=== PATIENT | male | born 1960 | race Caucasian/White ===

== ENCOUNTER 2021-05-02 15:43 | Inpatient (IN) ==
[2021-05-02] MEDS ORDERED: ONDANSETRON 4 MG/2 ML VIAL IV PRN (15:59)
[2021-05-02 17:12] LABS: Hematocrit 48.3 VOL% (42.0-52.0); Hemoglobin 15.1 GM/DL (14.0-18.0); Immature Granulocytes % 0.5 %; Immature Granulocytes Absolute 0.03 #; Lymphocytes # 0.3 10*3/uL (1.4-4.0); Lymphocytes % 4.9 % (21.2-54.2); Mean Corpuscular HGB Conc 31.3 GM/DL (32-36); Mean Corpuscular Volume 82.1 FL (87-102); Mean Platelet Volume 9.2 FL (9.6-12.0); Monocytes % 4.5 % (1.7-12.7); Neutrophils % 90.1 % (38.7-73.9); Platelet Count 312 T/CUMM (130-400); Red Blood Count 5.88 MC/CUMM (3.8-5.5); White Blood Count 5.6 T/CUMM (4-12)
[2021-05-02 17:33] LABS: Albumin 3.1 G/DL (3.4-5.0); Bilirubin,Total 0.6 MG/DL (0.20-1.00); Calcium 9.7 MG/DL (8.5-10.1); Osmolality,Calculated 266.7 MOS/KG (273-304); Potassium 4.1 MMOL/L (3.5-5.1); Total Protein 7.4 G/DL (6.4-8.2)
[2021-05-02 21:47] LABS: Band Neutrophils 1 % (0-10); Lymphocytes 4 % (20-55); Platelet Estimate Normal; Segmented Neutrophils 92 % (50-85); Total Cells Counted 100
[2021-05-02] MEDS ORDERED: ONDANSETRON 4 MG TABLET PO PRN (23:13)
[2021-05-03] MEDS ORDERED: APIXABAN 5 MG TABLET PO SCH (09:00)
[2021-05-03] MEDS: MELOXICAM 7.5 MG TABLET PO SCH (10:00)
[2021-05-03] MEDS: PANTOPRAZOLE 40 MG TABLET PO SCH (10:00)
[2021-05-03] MEDS: amLODIPine 10 MG TABLET PO SCH (10:00)
[2021-05-03] MEDS: SODIUM CHLORIDE 0.9% 1,000 ML IV SCH (16:11)
[2021-05-03] MEDS: ENOXAPARIN 60 MG/0.6 ML SYRINGE SUBCUT SCH (16:21)
[2021-05-04] MEDS: ACETAMINOPHEN 325 MG TABLET PO PRN (03:09)
[2021-05-04] MEDS: ENOXAPARIN 60 MG/0.6 ML SYRINGE SUBCUT SCH ×2 (03:11→16:25)
[2021-05-04] MEDS ORDERED: DILTIAZEM 50 MG/10 ML VIAL IV ONE (04:08)
[2021-05-04] MEDS ORDERED: DILTIAZEM 25 MG/5 ML VIAL IV ONE (04:10)
[2021-05-04] MEDS: SODIUM CHLORIDE 0.9% 1,000 ML IV SCH ×3 (04:29→21:12)
[2021-05-04] MEDS ORDERED: METOPROLOL TARTRATE 5 MG/5 ML VIAL IV ONE (05:07)
[2021-05-04 06:08] LABS: Basophils % 0.2 % (0.0-0.8); Hematocrit 46.7 VOL% (42.0-52.0); Hemoglobin 14.8 GM/DL (14.0-18.0); Immature Granulocytes % 0.5 %; Immature Granulocytes Absolute 0.03 #; Lymphocytes # 0.4 10*3/uL (1.4-4.0); Lymphocytes % 7.2 % (21.2-54.2); Mean Corpuscular HGB Conc 31.7 GM/DL (32-36); Mean Corpuscular Volume 81.6 FL (87-102); Monocytes % 5.8 % (1.7-12.7); Neutrophils % 86.3 % (38.7-73.9); Platelet Count 279 T/CUMM (130-400); Red Blood Count 5.72 MC/CUMM (3.8-5.5); Red Cell Distribution Width 19.8 % (9.3-17.3); White Blood Count 5.7 T/CUMM (4-12)
[2021-05-04] MEDS: DILTIAZEM INJ 100 MG in SODIUM CHLORIDE 0.9% 100 ML IV SCH ×3 (06:09→23:11)
[2021-05-04 06:27] LABS: Calcium 9.3 MG/DL (8.5-10.1); Osmolality,Calculated 266.4 MOS/KG (273-304); Potassium 3.8 MMOL/L (3.5-5.1)
[2021-05-04 06:59] LABS: Band Neutrophils 2 % (0-10); Hypochromasia 2+; Lymphocytes 2 % (20-55); Platelet Estimate Normal; Segmented Neutrophils 95 % (50-85); Total Cells Counted 100
[2021-05-04] MEDS: amLODIPine 10 MG TABLET PO SCH (09:36)
[2021-05-04] MEDS: MELOXICAM 7.5 MG TABLET PO SCH (09:36)
[2021-05-04] MEDS: PANTOPRAZOLE 40 MG TABLET PO SCH (09:36)
[2021-05-04] MEDS: METOPROLOL TARTRATE 25 MG TABLET PO SCH ×2 (11:25→21:12)
[2021-05-05] MEDS: ENOXAPARIN 60 MG/0.6 ML SYRINGE SUBCUT SCH ×2 (03:47→16:26)
[2021-05-05] MEDS: SODIUM CHLORIDE 0.9% 1,000 ML IV SCH ×2 (05:31→18:21)
[2021-05-05] MEDS ORDERED: DILTIAZEM INJ 100 MG in SODIUM CHLORIDE 0.9% 100 ML IV PRN (08:41)
[2021-05-05] MEDS: amLODIPine 10 MG TABLET PO SCH (10:24)
[2021-05-05] MEDS: MELOXICAM 7.5 MG TABLET PO SCH (10:24)
[2021-05-05] MEDS: METOPROLOL TARTRATE 25 MG TABLET PO SCH ×2 (10:25→21:53)
[2021-05-05] MEDS: PANTOPRAZOLE 40 MG TABLET PO SCH (10:25)
[2021-05-05] MEDS ORDERED: MAGNESIUM SULF RIDER 2 GM/50 ML PREMIX IV ONE (11:00)
[2021-05-05] MEDS ORDERED: POTASSIUM CHLORIDE 20 MEQ TABLET PO ONE (11:00)
[2021-05-05] MEDS ORDERED: POTASSIUM BICARB EFFERVESCENT 20 MEQ TAB.EFF PO ONE (11:30)
[2021-05-06] MEDS: ENOXAPARIN 60 MG/0.6 ML SYRINGE SUBCUT SCH (03:42)
[2021-05-06 06:06] LABS: Basophils % 0.3 % (0.0-0.8); Eosinophils % 0.3 % (0.00-10.9); Hematocrit 47.4 VOL% (42.0-52.0); Hemoglobin 14.5 GM/DL (14.0-18.0); Immature Granulocytes % 0.5 %; Immature Granulocytes Absolute 0.02 #; Lymphocytes # 0.4 10*3/uL (1.4-4.0); Mean Corpuscular HGB Conc 30.6 GM/DL (32-36); Mean Corpuscular Volume 83.7 FL (87-102); Mean Platelet Volume 9.8 FL (9.6-12.0); Monocytes % 5.2 % (1.7-12.7); Neutrophils % 84.7 % (38.7-73.9); Platelet Count 260 T/CUMM (130-400); Red Blood Count 5.66 MC/CUMM (3.8-5.5); Red Cell Distribution Width 19.8 % (9.3-17.3); White Blood Count 3.9 T/CUMM (4-12)
[2021-05-06 06:22] LABS: Calcium 8.5 MG/DL (8.5-10.1); Osmolality,Calculated 280.3 MOS/KG (273-304); Potassium 3.7 MMOL/L (3.5-5.1)
[2021-05-06 06:28] LABS: Eosinophils 1 % (0-10); Lymphocytes 12 % (20-55); Platelet Estimate Adequate; Segmented Neutrophils 86 % (50-85); Total Cells Counted 100
[2021-05-06] MEDS ORDERED: STERILE WATER INTRAPLEUR ONE ×2 (08:00)
[2021-05-06] MEDS ORDERED: LIDOCAINE 1% INTRAPLEUR ONE ×2 (08:00)
[2021-05-06] MEDS ORDERED: SODIUM CHLORIDE 0.9% IV ONE (08:00)
[2021-05-06] MEDS ORDERED: DOXYCYCLINE HYCLATE IV ONE (08:00)
[2021-05-06] MEDS ORDERED: DOXYCYCLINE HYCLATE INTRAPLEUR ONE ×2 (08:00)
[2021-05-06] MEDS ORDERED: BUPIVACAINE MPF 0.25% 30 ML VIAL ONE (10:21)
[2021-05-06] MEDS ORDERED: fentaNYL 100 MCG/2 ML VIAL ONE (10:23)
[2021-05-06] MEDS ORDERED: MIDAZOLAM 2 MG/2 ML VIAL ONE (10:26)
[2021-05-06] MEDS ORDERED: KETAMINE 500 MG/10 ML VIAL ONE (10:49)
[2021-05-06] MEDS ORDERED: propofoL 200 MG/20 ML VIAL IV ONE (11:07)
[2021-05-06] MEDS ORDERED: ETOMIDATE 40 MG/20 ML VIAL IV ONE (11:07)
[2021-05-06] MEDS ORDERED: LIDOCAINE 2% 5 ML VIAL ONE (11:07)
[2021-05-06] MEDS ORDERED: ONDANSETRON 4 MG/2 ML VIAL ONE (11:38)
[2021-05-06] MEDS ORDERED: SODIUM CHLORIDE 0.9% 100 ML IV ONE (11:38)
[2021-05-06] MEDS: PANTOPRAZOLE 40 MG TABLET PO SCH (13:09)
[2021-05-06] MEDS: DILTIAZEM CD 120 MG CAPSULE PO SCH (13:09)
[2021-05-06] MEDS: METOPROLOL TARTRATE 25 MG TABLET PO SCH ×2 (13:09→20:01)
[2021-05-06] MEDS: MELOXICAM 7.5 MG TABLET PO SCH (13:09)
[2021-05-06] MEDS: SODIUM CHLORIDE 0.9% 1,000 ML IV SCH (14:32)
[2021-05-06] MEDS: FLUCONAZOLE INJ 200 MG/100 ML PREMIX IV SCH (14:50)
[2021-05-07] MEDS: SODIUM CHLORIDE 0.9% 1,000 ML IV SCH ×4 (04:56→23:58)
[2021-05-07 05:33] LABS: PT Patient Result 11.4 SECS (10.5-12.0)
[2021-05-07 05:41] LABS: Basophils % 0.7 % (0.0-0.8); Eosinophils # 0.1 10*3/uL (0.0-0.87); Eosinophils % 2.5 % (0.00-10.9); Hematocrit 45.5 VOL% (42.0-52.0); Hemoglobin 14.4 GM/DL (14.0-18.0); Immature Granulocytes % 0.7 %; Immature Granulocytes Absolute 0.03 #; Lymphocytes # 0.3 10*3/uL (1.4-4.0); Lymphocytes % 6.7 % (21.2-54.2); Mean Corpuscular HGB Conc 31.6 GM/DL (32-36); Mean Corpuscular Volume 83.8 FL (87-102); Mean Platelet Volume 9.9 FL (9.6-12.0); Monocytes % 5.7 % (1.7-12.7); Neutrophils % 83.7 % (38.7-73.9); Platelet Count 211 T/CUMM (130-400); Red Blood Count 5.43 MC/CUMM (3.8-5.5); Red Cell Distribution Width 19.8 % (9.3-17.3); White Blood Count 4.1 T/CUMM (4-12)
[2021-05-07 05:55] LABS: Albumin 2.3 G/DL (3.4-5.0); Calcium 8.6 MG/DL (8.5-10.1); Potassium 3.4 MMOL/L (3.5-5.1); Total Protein 5.8 G/DL (6.4-8.2)
[2021-05-07 05:56] LABS: Eosinophils 1 % (0-10); Hypochromasia 1+; Lymphocytes 7 % (20-55); Microcytosis 1+; Ovalocytes Few; Segmented Neutrophils 88 % (50-85); Total Cells Counted 100
[2021-05-07 05:57] LABS: Platelet Estimate Normal
[2021-05-07 06:09] LABS: Calcium 8.3 MG/DL (8.5-10.1); Potassium 3.5 MMOL/L (3.5-5.1)
[2021-05-07] MEDS ORDERED: VANCOMYCIN INJ 1,000 MG in SODIUM CHLORIDE 0.9% 250 ML IV ONE (08:00)
[2021-05-07] MEDS ORDERED: LACTATED RINGERS 1,000 ML IV SCH ×2 (08:00→12:00)
[2021-05-07] MEDS: FLUCONAZOLE INJ 200 MG/100 ML PREMIX IV SCH (10:42)
[2021-05-07] MEDS: METOPROLOL TARTRATE 25 MG TABLET PO SCH ×2 (10:43→21:33)
[2021-05-07] MEDS: MELOXICAM 7.5 MG TABLET PO SCH (10:43)
[2021-05-07] MEDS: DILTIAZEM CD 120 MG CAPSULE PO SCH (10:43)
[2021-05-07] MEDS: PANTOPRAZOLE 40 MG TABLET PO SCH (10:44)
[2021-05-07] MEDS ORDERED: BUPIVACAINE MPF 0.25% 30 ML VIAL ONE (10:51)
[2021-05-07] MEDS ORDERED: TISSUE ADHESIVE 1 EACH APPLICATOR TOP ONE (10:51)
[2021-05-07] MEDS ORDERED: LIDOCAINE 1%/EPI INJ 20 ML VIAL ONE (10:51)
[2021-05-07] MEDS ORDERED: CLINDAMYCIN INJ 900 MG/50 ML PREMIX IV ONE (12:13)
[2021-05-07] MEDS ORDERED: NALOXONE 0.4 MG/ML VIAL ONE (18:50)
[2021-05-07] MEDS ORDERED: NALOXONE 0.4 MG/ML VIAL IV ONE (18:50)
[2021-05-07 19:15] LABS: Basophils # 0.1 10*3/uL (0.0-0.2); Basophils % 0.8 % (0.0-0.8); Eosinophils % 0.3 % (0.00-10.9); Hematocrit 49.4 VOL% (42.0-52.0); Immature Granulocytes % 0.8 %; Immature Granulocytes Absolute 0.08 #; Lymphocytes # 0.5 10*3/uL (1.4-4.0); Lymphocytes % 5.4 % (21.2-54.2); Mean Corpuscular HGB Conc 28.3 GM/DL (32-36); Mean Corpuscular Volume 90.1 FL (87-102); Mean Platelet Volume 9.9 FL (9.6-12.0); NRBC # 0.05 10*3/uL; Neutrophils % 87.7 % (38.7-73.9); Platelet Count 236 T/CUMM (130-400); Red Blood Count 5.48 MC/CUMM (3.8-5.5); Red Cell Distribution Width 19.8 % (9.3-17.3); White Blood Count 9.8 T/CUMM (4-12)
[2021-05-07] MEDS ORDERED: ETOMIDATE 20 MG/10 ML VIAL IV ONE (19:18)
[2021-05-07] MEDS ORDERED: MIDAZOLAM 2 MG/2 ML VIAL IV ONE (19:29)
[2021-05-07] MEDS ORDERED: MIDAZOLAM 2 MG/2 ML VIAL ONE (19:31)
[2021-05-07 19:39] LABS: Alanine Aminotransferase 52 U/L (16-61); Albumin 2.1 G/DL (3.4-5.0); Alkaline Phosphatase 162 U/L (45-117); Aspartate Amino Transferase 63 U/L (0-37); Blood Urea Nitrogen 16 MG/DL (7-18); Calcium 8.7 MG/DL (8.5-10.1); Carbon Dioxide 29 MMOL/L (21-32); Estimated Glom Filtration Rate 84 ML/MIN; Glucose 97 MG/DL (74-106); Osmolality,Calculated 283.1 MOS/KG (273-304); Potassium 4.3 MMOL/L (3.5-5.1); Sodium 142 MMOL/L (136-145)
[2021-05-07 19:41] LABS: Lactic Acid 2.3 MMOL/L (0.4-2.0)
[2021-05-07] MEDS ORDERED: NOREPINEPHRINE 4 MG/4 ML VIAL IV ONE (19:53)
[2021-05-07] MEDS: NOREPINEPHRINE 8 MG in SODIUM CHLORIDE 0.9% 242 ML IV PRN (19:58)
[2021-05-07 20:16] LABS: ABG HCO3 9.5 MMOL/L (20-26); ABG Oxygen Saturation 82.4 % (95-100); ABG PCO2 31.2 MM HG (35-48); ABG PO2 54.1 MM HG (80-95); ABG TCO2 9.5 MMOL/L (23-27)
[2021-05-07] MEDS: MIDAZOLAM 100 MG in SODIUM CHLORIDE 0.9% 80 ML IV PRN (20:18)
[2021-05-07 20:27] LABS: ABG PH 7.082 (7.35-7.45)
[2021-05-07] MEDS ORDERED: SODIUM BICARBONATE 50 MEQ/50 ML SYRINGE IV ONE ×2 (20:36)
[2021-05-07] MEDS ORDERED: SODIUM BICARBONATE 50 MEQ/50 ML VIAL IV ONE (21:06)
[2021-05-07] MEDS ORDERED: SODIUM CHLORIDE 0.9% 500 ML IV ONE (21:06)
[2021-05-07 22:03] LABS: INR 1.1; PT Patient Result 11.9 SECS (10.5-12.0)
[2021-05-07 22:18] LABS: Band Neutrophils 19 % (0-10); Eosinophils 1 % (0-10); Lymphocytes 5 % (20-55); Platelet Estimate Normal; Segmented Neutrophils 67 % (50-85); Total Cells Counted 100
[2021-05-08] MEDS: ACETAMINOPHEN 325 MG TABLET PO PRN (00:30)
[2021-05-08] MEDS: NOREPINEPHRINE 8 MG in SODIUM CHLORIDE 0.9% 242 ML IV PRN ×3 (03:01→20:46)
[2021-05-08 03:50] LABS: ABG Base Excess 3.3 MMOL/L (-2.5-2.5); ABG HCO3 26.5 MMOL/L (20-26); ABG Oxygen Saturation 99.4 % (95-100); ABG PCO2 35.9 MM HG (35-48); ABG PH 7.486 (7.35-7.45); ABG PO2 275.1 MM HG (80-95); ABG TCO2 27.6 MMOL/L (23-27)
[2021-05-08 04:08] LABS: Basophils # 0.1 10*3/uL (0.0-0.2); Basophils % 0.9 % (0.0-0.8); Hematocrit 43.1 VOL% (42.0-52.0); Hemoglobin 13.2 GM/DL (14.0-18.0); Immature Granulocytes % 1.2 %; Immature Granulocytes Absolute 0.13 #; Lymphocytes # 0.5 10*3/uL (1.4-4.0); Lymphocytes % 4.3 % (21.2-54.2); Mean Corpuscular HGB Conc 30.6 GM/DL (32-36); Mean Platelet Volume 9.7 FL (9.6-12.0); Monocytes % 6.3 % (1.7-12.7); Neutrophils % 87.3 % (38.7-73.9); Platelet Count 189 T/CUMM (130-400); Red Blood Count 5.19 MC/CUMM (3.8-5.5); Red Cell Distribution Width 19.4 % (9.3-17.3); White Blood Count 10.5 T/CUMM (4-12)
[2021-05-08 04:11] LABS: Bacteria,Urine Occasional /HPF (Few); Bilirubin,Urine Negative (Negative); Blood, Urine Negative (Negative); Glucose,Urine (UA) Negative (Negative); Hyaline Casts,Urine 3 /LPF (0-3); Ketones,Urine 5 mg/dL (Negative); Mucus,Urine Few /LPF (Occasional); Nitrite,Urine Negative (Negative); Protein,Urine 30 MG/DL; RBC,Urine 7 /HPF (0-4); Squamous Epithelial Cell,Urine Occasional /HPF (0-10); Urine Appearance CLOUDY (Clear); Urine Color Amber (Yellow); Urine Specific Gravity 1.011 (1.001-1.035)
[2021-05-08 04:36] LABS: Band Neutrophils 6 % (0-10); Lymphocytes 4 % (20-55); Platelet Estimate Adequate; Segmented Neutrophils 84 % (50-85); Total Cells Counted 100
[2021-05-08 04:37] LABS: Microcytosis Slight
[2021-05-08 04:41] LABS: Albumin 2.1 G/DL (3.4-5.0); Bilirubin,Total 0.6 MG/DL (0.20-1.00); Calcium 8.5 MG/DL (8.5-10.1); Osmolality,Calculated 293.6 MOS/KG (273-304); Potassium 3.4 MMOL/L (3.5-5.1); Total Protein 5.5 G/DL (6.4-8.2)
[2021-05-08] MEDS: fentaNYL INJ 1,250 MCG in SODIUM CHLORIDE 0.9% 225 ML IV PRN ×2 (05:02→20:33)
[2021-05-08] MEDS: METOPROLOL TARTRATE 25 MG TABLET PO SCH ×2 (08:30→21:04)
[2021-05-08] MEDS ORDERED: LACTULOSE 20 GM/30 ML UDCUP PER TUBE SCH (09:00)
[2021-05-08] MEDS: HYDROCORTISONE 100 MG VIAL IV SCH ×3 (09:09→21:03)
[2021-05-08] MEDS: MELOXICAM 7.5 MG TABLET PO SCH (09:09)
[2021-05-08] MEDS: PANTOPRAZOLE 40 MG VIAL IV SCH (09:09)
[2021-05-08] MEDS: FLUCONAZOLE INJ 200 MG/100 ML PREMIX IV SCH (09:29)
[2021-05-08] MEDS: POTASSIUM CHLORIDE RIDER 10 MEQ/100 ML PREMIX IV PRN ×3 (12:02→16:08)
[2021-05-08] MEDS: CLINDAMYCIN INJ 300 MG/50 ML PREMIX IV SCH ×3 (12:41→21:03)
[2021-05-08] MEDS: LACTULOSE 320 GM/480 ML BOTTLE RECTAL SCH (12:41)
[2021-05-08] MEDS: SODIUM CHLORIDE 0.9% 1,000 ML IV SCH (12:41)
[2021-05-08] MEDS: MIDAZOLAM 100 MG in SODIUM CHLORIDE 0.9% 80 ML IV PRN (14:17)
[2021-05-08] MEDS: FAT EMULSION 20% 250 ML IV SCH (15:53)
[2021-05-08] MEDS ORDERED: ZINC/COPPER/MANGANESE/SELENIUM 1 ML, MULTIVITAMIN INJ 10 ML in AMINO ACIDS/DEXT/LYTES 5... IV SCH (17:00)
[2021-05-09] MEDS: LACTULOSE 320 GM/480 ML BOTTLE RECTAL SCH (00:40)
[2021-05-09] MEDS: HYDROCORTISONE 100 MG VIAL IV SCH ×3 (03:00→20:46)
[2021-05-09] MEDS: SODIUM CHLORIDE 0.9% 1,000 ML IV SCH ×2 (03:00→18:04)
[2021-05-09] MEDS: CLINDAMYCIN INJ 300 MG/50 ML PREMIX IV SCH ×4 (03:56→20:46)
[2021-05-09 04:49] LABS: ABG Base Excess 4.5 MMOL/L (-2.5-2.5); ABG HCO3 29.9 MMOL/L (20-26); ABG Oxygen Saturation 98.7 % (95-100); ABG PCO2 47.8 MM HG (35-48); ABG PH 7.414 (7.35-7.45); ABG PO2 166.6 MM HG (80-95); ABG TCO2 31.4 MMOL/L (23-27)
[2021-05-09 05:00] LABS: Basophils % 0.2 % (0.0-0.8); Hematocrit 36.7 VOL% (42.0-52.0); Hemoglobin 11.6 GM/DL (14.0-18.0); Immature Granulocytes % 1.2 %; Immature Granulocytes Absolute 0.12 #; Lymphocytes # 0.3 10*3/uL (1.4-4.0); Lymphocytes % 3.1 % (21.2-54.2); Mean Corpuscular HGB Conc 31.6 GM/DL (32-36); Mean Corpuscular Volume 81.6 FL (87-102); Mean Platelet Volume 10.1 FL (9.6-12.0); Monocytes % 6.7 % (1.7-12.7); Neutrophils % 88.8 % (38.7-73.9); Red Cell Distribution Width 19.5 % (9.3-17.3)
[2021-05-09 05:01] LABS: Platelet Count 139 T/CUMM (130-400)
[2021-05-09 05:02] LABS: Calcium 8.1 MG/DL (8.5-10.1); Osmolality,Calculated 311.6 MOS/KG (273-304); Potassium 3.6 MMOL/L (3.5-5.1)
[2021-05-09 05:07] LABS: Band Neutrophils 4 % (0-10); Hypochromasia 1+; Lymphocytes 5 % (20-55); Nucleated Red Blood Cells 1 (0-5); Segmented Neutrophils 80 % (50-85); Total Cells Counted 100
[2021-05-09 05:08] LABS: Anisocytosis 1+; Microcytosis 1+; Platelet Estimate Adequate
[2021-05-09 05:18] LABS: Albumin 1.9 G/DL (3.4-5.0); Bilirubin,Total 0.6 MG/DL (0.20-1.00); Calcium 8.4 MG/DL (8.5-10.1); Osmolality,Calculated 308.7 MOS/KG (273-304); Potassium 3.5 MMOL/L (3.5-5.1); Total Protein 5.2 G/DL (6.4-8.2)
[2021-05-09] MEDS: PANTOPRAZOLE 40 MG VIAL IV SCH (09:00)
[2021-05-09] MEDS: FLUCONAZOLE INJ 200 MG/100 ML PREMIX IV SCH (09:01)
[2021-05-09] MEDS: MELOXICAM 7.5 MG TABLET PO SCH (09:10)
[2021-05-09] MEDS: METOPROLOL TARTRATE 25 MG TABLET PO SCH ×2 (09:10→21:01)
[2021-05-09] MEDS: MIDAZOLAM 100 MG in SODIUM CHLORIDE 0.9% 80 ML IV PRN (09:26)
[2021-05-09] MEDS ORDERED: GLUCAGON 1 MG VIAL IM PRN (10:59)
[2021-05-09] MEDS ORDERED: DEXTROSE 50% 25 GM/50 ML VIAL IV PRN (10:59)
[2021-05-09] MEDS: NOREPINEPHRINE 8 MG in SODIUM CHLORIDE 0.9% 242 ML IV PRN (11:52)
[2021-05-09] MEDS: INSULIN REGULAR 100 UNIT/ML SUBCUT SCH ×3 (12:26→23:26)
[2021-05-09] MEDS: FAT EMULSION 20% 250 ML IV SCH (14:18)
[2021-05-09] MEDS ORDERED: DIGOXIN 0.5 MG/2 ML AMP IV ONE ×2 (14:33→15:15)
[2021-05-09] MEDS ORDERED: ZINC/COPPER/MANGANESE/SELENIUM 1 ML, MULTIVITAMIN INJ 10 ML in AMINO ACIDS/DEXT/LYTES 5... IV SCH (17:00)
[2021-05-09] MEDS: SELENIUM IV SCH (18:13)
[2021-05-09] MEDS: COPPER IV SCH (18:13)
[2021-05-09] MEDS: MANGANESE IV SCH (18:13)
[2021-05-09] MEDS: MULTIVITAMIN IV SCH (18:13)
[2021-05-09] MEDS: [UNRECOGNIZED DRUG - OTHER] IV SCH (18:13)
[2021-05-09] MEDS: ZINC IV SCH (18:13)
[2021-05-09] MEDS: fentaNYL INJ 1,250 MCG in SODIUM CHLORIDE 0.9% 225 ML IV PRN (23:26)
[2021-05-10] MEDS: CLINDAMYCIN INJ 300 MG/50 ML PREMIX IV SCH ×4 (03:30→20:14)
[2021-05-10 04:09] LABS: ABG Base Excess 6.1 MMOL/L (-2.5-2.5); ABG HCO3 29.9 MMOL/L (20-26); ABG PCO2 52.5 MM HG (35-48); ABG PH 7.395 (7.35-7.45); ABG TCO2 29.1 MMOL/L (23-27); Allen Test Positive; Pt O2 Delivery Device Ventilator
[2021-05-10 04:30] LABS: Basophils % 0.1 % (0.0-0.8); Hematocrit 32.3 VOL% (42.0-52.0); Hemoglobin 10.3 GM/DL (14.0-18.0); Immature Granulocytes Absolute 0.09 #; Lymphocytes # 0.3 10*3/uL (1.4-4.0); Lymphocytes % 2.8 % (21.2-54.2); Mean Corpuscular HGB Conc 31.9 GM/DL (32-36); Mean Corpuscular Volume 83.9 FL (87-102); Mean Platelet Volume 9.8 FL (9.6-12.0); Monocytes % 7.2 % (1.7-12.7); Neutrophils % 88.9 % (38.7-73.9); Red Blood Count 3.85 MC/CUMM (3.8-5.5); Red Cell Distribution Width 19.2 % (9.3-17.3); White Blood Count 9.1 T/CUMM (4-12)
[2021-05-10 04:41] LABS: Platelet Count 75 T/CUMM (130-400)
[2021-05-10 05:06] LABS: Albumin 1.7 G/DL (3.4-5.0); Calcium 8.3 MG/DL (8.5-10.1); Osmolality,Calculated 308.3 MOS/KG (273-304); Potassium 3.3 MMOL/L (3.5-5.1); Total Protein 4.7 G/DL (6.4-8.2)
[2021-05-10 05:19] LABS: Band Neutrophils 3 % (0-10); Lymphocytes 3 % (20-55); Segmented Neutrophils 91 % (50-85); Total Cells Counted 100
[2021-05-10 05:20] LABS: Hypochromasia 1+; Microcytosis 1+; Platelet Estimate Decreased
[2021-05-10] MEDS: INSULIN REGULAR 100 UNIT/ML SUBCUT SCH ×3 (05:25→18:31)
[2021-05-10] MEDS: [UNRECOGNIZED DRUG - OTHER] IV SCH ×2 (05:40→18:25)
[2021-05-10] MEDS: COPPER IV SCH ×2 (05:40→18:25)
[2021-05-10] MEDS: MANGANESE IV SCH ×2 (05:40→18:25)
[2021-05-10] MEDS: MULTIVITAMIN IV SCH ×2 (05:40→18:25)
[2021-05-10] MEDS: SODIUM CHLORIDE 0.9% 1,000 ML IV SCH ×2 (05:40→21:11)
[2021-05-10] MEDS: ZINC IV SCH ×2 (05:40→18:25)
[2021-05-10] MEDS: SELENIUM IV SCH ×2 (05:40→18:25)
[2021-05-10] MEDS: PANTOPRAZOLE 40 MG VIAL IV SCH (09:58)
[2021-05-10] MEDS: HYDROCORTISONE 100 MG VIAL IV SCH ×2 (09:58→20:16)
[2021-05-10] MEDS: MELOXICAM 7.5 MG TABLET PO SCH (10:15)
[2021-05-10] MEDS: METOPROLOL TARTRATE 25 MG TABLET PO SCH ×2 (10:15→20:10)
[2021-05-10] MEDS: FLUCONAZOLE INJ 200 MG/100 ML PREMIX IV SCH (11:13)
[2021-05-10] MEDS: FAT EMULSION 20% 250 ML IV SCH (14:35)
[2021-05-10] MEDS ORDERED: POTASSIUM CHLORIDE RIDER 10 MEQ/100 ML PREMIX IV PRN (19:50)
[2021-05-10] MEDS: POTASSIUM CHLORIDE RIDER 20 MEQ/100 ML PREMIX IV PRN ×2 (20:14→22:16)
[2021-05-11] MEDS: INSULIN REGULAR 100 UNIT/ML SUBCUT SCH ×4 (00:01→17:32)
[2021-05-11] MEDS ORDERED: hydrALAZINE 20 MG/1 ML VIAL IV ONE (02:00)
[2021-05-11] MEDS ORDERED: hydrALAZINE 20 MG/1 ML VIAL ONE (02:03)
[2021-05-11] MEDS ORDERED: ALBUTEROL/IPRATROPIUM 3 ML NEB RESP TX ONE (02:30)
[2021-05-11 03:06] LABS: Basophils % 0.1 % (0.0-0.8); Hematocrit 38.7 VOL% (42.0-52.0); Hemoglobin 11.8 GM/DL (14.0-18.0); Immature Granulocytes % 0.8 %; Immature Granulocytes Absolute 0.07 #; Lymphocytes # 0.3 10*3/uL (1.4-4.0); Lymphocytes % 3.3 % (21.2-54.2); Mean Corpuscular HGB Conc 30.5 GM/DL (32-36); Mean Corpuscular Volume 85.2 FL (87-102); Monocytes % 7.2 % (1.7-12.7); NRBC # 0.03 10*3/uL; Neutrophils % 88.6 % (38.7-73.9); Platelet Count 89 T/CUMM (130-400); Red Blood Count 4.54 MC/CUMM (3.8-5.5); Red Cell Distribution Width 19.8 % (9.3-17.3); White Blood Count 8.8 T/CUMM (4-12)
[2021-05-11] MEDS: CLINDAMYCIN INJ 300 MG/50 ML PREMIX IV SCH ×3 (03:20→18:29)
[2021-05-11 04:26] LABS: Band Neutrophils 3 % (0-10); Lymphocytes 5 % (20-55); Platelet Estimate Decreased; Segmented Neutrophils 91 % (50-85); Total Cells Counted 100
[2021-05-11] MEDS ORDERED: LORazepam 2 MG/1 ML VIAL IV PRN (04:59)
[2021-05-11 07:04] LABS: Alanine Aminotransferase 62 U/L (16-61); Albumin 1.8 G/DL (3.4-5.0); Alkaline Phosphatase 134 U/L (45-117); Aspartate Amino Transferase 65 U/L (0-37); Bilirubin,Total < 0.39 MG/DL (0.20-1.00); Blood Urea Nitrogen 27 MG/DL (7-18); Calcium 8.8 MG/DL (8.5-10.1); Carbon Dioxide 29 MMOL/L (21-32); Estimated Glom Filtration Rate 133 ML/MIN; Glucose 159 MG/DL (74-106); Osmolality,Calculated 301.3 MOS/KG (273-304); Potassium 3.3 MMOL/L (3.5-5.1); Sodium 148 MMOL/L (136-145); Total Protein 5.1 G/DL (6.4-8.2)
[2021-05-11] MEDS: METOPROLOL TARTRATE 25 MG TABLET PO SCH ×2 (09:10→21:08)
[2021-05-11] MEDS: MELOXICAM 7.5 MG TABLET PO SCH (09:10)
[2021-05-11] MEDS: MULTIVITAMIN IV SCH ×2 (09:37→22:26)
[2021-05-11] MEDS: [UNRECOGNIZED DRUG - OTHER] IV SCH ×2 (09:37→22:26)
[2021-05-11] MEDS: ZINC IV SCH ×2 (09:37→22:26)
[2021-05-11] MEDS: MANGANESE IV SCH ×2 (09:37→22:26)
[2021-05-11] MEDS: PANTOPRAZOLE 40 MG VIAL IV SCH (09:37)
[2021-05-11] MEDS: COPPER IV SCH ×2 (09:37→22:26)
[2021-05-11] MEDS: SELENIUM IV SCH ×2 (09:37→22:26)
[2021-05-11] MEDS: HYDROCORTISONE 100 MG VIAL IV SCH (09:38)
[2021-05-11] MEDS: FLUCONAZOLE INJ 200 MG/100 ML PREMIX IV SCH (09:38)
[2021-05-11] MEDS: POTASSIUM CHLORIDE RIDER 20 MEQ/100 ML PREMIX IV PRN ×2 (09:39→12:40)
[2021-05-11] MEDS: SODIUM CHLORIDE 0.9% 1,000 ML IV SCH (10:01)
[2021-05-11] MEDS: FAT EMULSION 20% 250 ML IV SCH (16:11)
[2021-05-12] MEDS: INSULIN REGULAR 100 UNIT/ML SUBCUT SCH ×5 (00:21→23:27)
[2021-05-12] MEDS: CLINDAMYCIN INJ 300 MG/50 ML PREMIX IV SCH ×4 (00:21→19:03)
[2021-05-12 06:12] LABS: Basophils % 0.2 % (0.0-0.8); Eosinophils % 0.3 % (0.00-10.9); Hematocrit 38.1 VOL% (42.0-52.0); Hemoglobin 11.7 GM/DL (14.0-18.0); Immature Granulocytes Absolute 0.06 #; Lymphocytes # 0.4 10*3/uL (1.4-4.0); Lymphocytes % 6.7 % (21.2-54.2); Mean Corpuscular HGB Conc 30.7 GM/DL (32-36); Mean Corpuscular Volume 84.3 FL (87-102); Mean Platelet Volume 9.9 FL (9.6-12.0); Monocytes % 11.4 % (1.7-12.7); Neutrophils % 80.4 % (38.7-73.9); Red Blood Count 4.52 MC/CUMM (3.8-5.5); Red Cell Distribution Width 20.1 % (9.3-17.3)
[2021-05-12 06:42] LABS: Albumin 1.7 G/DL (3.4-5.0); Bilirubin,Total 1.1 MG/DL (0.20-1.00); Calcium 8.5 MG/DL (8.5-10.1); Osmolality,Calculated 294.6 MOS/KG (273-304); Potassium 3.1 MMOL/L (3.5-5.1); Total Protein 4.9 G/DL (6.4-8.2)
[2021-05-12 06:46] LABS: Platelet Count 88 T/CUMM (130-400)
[2021-05-12 06:49] LABS: Hypochromasia Slight; Microcytosis Slight; Platelet Estimate Decreased
[2021-05-12] MEDS: FLUCONAZOLE INJ 200 MG/100 ML PREMIX IV SCH (09:37)
[2021-05-12] MEDS: PANTOPRAZOLE 40 MG VIAL IV SCH (09:43)
[2021-05-12] MEDS: MELOXICAM 7.5 MG TABLET PO SCH (09:50)
[2021-05-12] MEDS: METOPROLOL TARTRATE 25 MG TABLET PO SCH ×2 (09:50→20:11)
[2021-05-12] MEDS: COPPER IV SCH (13:35)
[2021-05-12] MEDS: SELENIUM IV SCH (13:35)
[2021-05-12] MEDS: ZINC IV SCH (13:35)
[2021-05-12] MEDS: [UNRECOGNIZED DRUG - OTHER] IV SCH (13:35)
[2021-05-12] MEDS: MULTIVITAMIN IV SCH (13:35)
[2021-05-12] MEDS: MANGANESE IV SCH (13:35)
[2021-05-12] MEDS: POTASSIUM CHLORIDE RIDER 20 MEQ/100 ML PREMIX IV PRN ×2 (13:42→16:28)
[2021-05-12] MEDS: FAT EMULSION 20% 250 ML IV SCH (16:18)
[2021-05-12] MEDS: ENOXAPARIN 60 MG/0.6 ML SYRINGE SUBCUT SCH (18:12)
[2021-05-13] MEDS: CLINDAMYCIN INJ 300 MG/50 ML PREMIX IV SCH ×4 (00:16→19:24)
[2021-05-13] MEDS: [UNRECOGNIZED DRUG - OTHER] IV SCH ×2 (02:25→19:23)
[2021-05-13] MEDS: MULTIVITAMIN IV SCH ×2 (02:25→19:23)
[2021-05-13] MEDS: ZINC IV SCH ×2 (02:25→19:23)
[2021-05-13] MEDS: MANGANESE IV SCH ×2 (02:25→19:23)
[2021-05-13] MEDS: COPPER IV SCH ×2 (02:25→19:23)
[2021-05-13] MEDS: SELENIUM IV SCH ×2 (02:25→19:23)
[2021-05-13] MEDS: ENOXAPARIN 60 MG/0.6 ML SYRINGE SUBCUT SCH ×2 (05:22→16:40)
[2021-05-13 05:43] LABS: Basophils % 0.2 % (0.0-0.8); Hematocrit 37.2 VOL% (42.0-52.0); Hemoglobin 11.7 GM/DL (14.0-18.0); Immature Granulocytes % 2.7 %; Immature Granulocytes Absolute 0.11 #; Lymphocytes # 0.3 10*3/uL (1.4-4.0); Mean Corpuscular HGB Conc 31.5 GM/DL (32-36); Mean Corpuscular Volume 82.5 FL (87-102); Mean Platelet Volume 10.9 FL (9.6-12.0); Monocytes % 16.2 % (1.7-12.7); Neutrophils % 71.9 % (38.7-73.9); Platelet Count 104 T/CUMM (130-400); Red Blood Count 4.51 MC/CUMM (3.8-5.5); Red Cell Distribution Width 20.7 % (9.3-17.3)
[2021-05-13 06:09] LABS: Band Neutrophils 1 % (0-10); Eosinophils 1 % (0-10); Hypochromasia Slight; Lymphocytes 8 % (20-55); Microcytosis Slight; Platelet Estimate Decreased; Segmented Neutrophils 78 % (50-85); Total Cells Counted 100
[2021-05-13] MEDS: INSULIN REGULAR 100 UNIT/ML SUBCUT SCH ×4 (06:22→23:39)
[2021-05-13 06:34] LABS: Calcium 8.3 MG/DL (8.5-10.1); Osmolality,Calculated 290.8 MOS/KG (273-304); Potassium 3.3 MMOL/L (3.5-5.1)
[2021-05-13 06:37] LABS: Albumin 1.7 G/DL (3.4-5.0); Bilirubin,Total 0.4 MG/DL (0.20-1.00); Calcium 8.2 MG/DL (8.5-10.1); Osmolality,Calculated 286.1 MOS/KG (273-304); Potassium 3.2 MMOL/L (3.5-5.1); Total Protein 4.9 G/DL (6.4-8.2)
[2021-05-13] MEDS: FLUCONAZOLE INJ 200 MG/100 ML PREMIX IV SCH (08:59)
[2021-05-13] MEDS: POTASSIUM CHLORIDE RIDER 20 MEQ/100 ML PREMIX IV PRN ×2 (09:03→11:11)
[2021-05-13] MEDS: PANTOPRAZOLE 40 MG VIAL IV SCH (09:06)
[2021-05-13] MEDS: MELOXICAM 7.5 MG TABLET PO SCH ×2 (09:07→09:23)
[2021-05-13] MEDS: METOPROLOL TARTRATE 25 MG TABLET PO SCH ×3 (09:07→21:10)
[2021-05-13] MEDS ORDERED: MAGNESIUM SULF RIDER 2 GM/50 ML PREMIX IV ONE (15:37)
[2021-05-14] MEDS: CLINDAMYCIN INJ 300 MG/50 ML PREMIX IV SCH ×5 (00:39→23:30)
[2021-05-14 05:09] LABS: Basophils % 0.7 % (0.0-0.8); Eosinophils # 0.1 10*3/uL (0.0-0.87); Eosinophils % 1.7 % (0.00-10.9); Hematocrit 34.2 VOL% (42.0-52.0); Hemoglobin 11.1 GM/DL (14.0-18.0); Immature Granulocytes % 2.4 %; Immature Granulocytes Absolute 0.07 #; Lymphocytes # 0.3 10*3/uL (1.4-4.0); Lymphocytes % 9.7 % (21.2-54.2); Mean Corpuscular HGB Conc 32.5 GM/DL (32-36); Mean Platelet Volume 10.6 FL (9.6-12.0); Monocytes % 23.4 % (1.7-12.7); Neutrophils % 62.1 % (38.7-73.9); Platelet Count 148 T/CUMM (130-400); Red Blood Count 4.12 MC/CUMM (3.8-5.5); Red Cell Distribution Width 20.1 % (9.3-17.3); White Blood Count 2.9 T/CUMM (4-12)
[2021-05-14 05:25] LABS: Calcium 8.1 MG/DL (8.5-10.1); Osmolality,Calculated 288.1 MOS/KG (273-304); Potassium 3.6 MMOL/L (3.5-5.1)
[2021-05-14 05:27] LABS: Albumin 1.5 G/DL (3.4-5.0); Calcium 8.1 MG/DL (8.5-10.1); Osmolality,Calculated 288.1 MOS/KG (273-304); Potassium 3.6 MMOL/L (3.5-5.1); Total Protein 4.6 G/DL (6.4-8.2)
[2021-05-14] MEDS: ENOXAPARIN 60 MG/0.6 ML SYRINGE SUBCUT SCH ×2 (05:40→17:02)
[2021-05-14 05:45] LABS: Band Neutrophils 9 % (0-10); Lymphocytes 9 % (20-55); Segmented Neutrophils 62 % (50-85); Total Cells Counted 100
[2021-05-14 05:46] LABS: Hypochromasia 1+; Microcytosis 1+; Platelet Estimate Adequate
[2021-05-14] MEDS: INSULIN REGULAR 100 UNIT/ML SUBCUT SCH ×3 (06:40→19:27)
[2021-05-14] MEDS ORDERED: MAGNESIUM SULF RIDER 2 GM/50 ML PREMIX IV ONE (07:39)
[2021-05-14] MEDS: MANGANESE IV SCH ×2 (09:40→23:04)
[2021-05-14] MEDS: MULTIVITAMIN IV SCH ×2 (09:40→23:04)
[2021-05-14] MEDS: ZINC IV SCH ×2 (09:40→23:04)
[2021-05-14] MEDS: SELENIUM IV SCH ×2 (09:40→23:04)
[2021-05-14] MEDS: COPPER IV SCH ×2 (09:40→23:04)
[2021-05-14] MEDS: [UNRECOGNIZED DRUG - OTHER] IV SCH ×2 (09:40→23:04)
[2021-05-14] MEDS: PANTOPRAZOLE 40 MG VIAL IV SCH (09:50)
[2021-05-14] MEDS: METOPROLOL TARTRATE 25 MG TABLET PO SCH ×2 (09:50→21:58)
[2021-05-14] MEDS: MELOXICAM 7.5 MG TABLET PO SCH (09:50)
[2021-05-14] MEDS: FILGRASTIM-SNDZ 300 MCG/0.5 ML SYRINGE SUBCUT SCH (09:58)
[2021-05-15] MEDS: INSULIN REGULAR 100 UNIT/ML SUBCUT SCH ×4 (00:25→18:29)
[2021-05-15 04:26] LABS: Basophils % 0.3 % (0.0-0.8); Eosinophils # 0.1 10*3/uL (0.0-0.87); Eosinophils % 0.8 % (0.00-10.9); Hematocrit 34.1 VOL% (42.0-52.0); Hemoglobin 10.5 GM/DL (14.0-18.0); Immature Granulocytes % 1.1 %; Lymphocytes # 0.3 10*3/uL (1.4-4.0); Lymphocytes % 3.5 % (21.2-54.2); Mean Corpuscular HGB Conc 30.8 GM/DL (32-36); Mean Corpuscular Volume 84.8 FL (87-102); Monocytes % 12.8 % (1.7-12.7); Neutrophils % 81.5 % (38.7-73.9); Platelet Count 224 T/CUMM (130-400); Red Blood Count 4.02 MC/CUMM (3.8-5.5); Red Cell Distribution Width 20.4 % (9.3-17.3); White Blood Count 9.1 T/CUMM (4-12)
[2021-05-15 04:49] LABS: Albumin 1.3 G/DL (3.4-5.0); Band Neutrophils 8 % (0-10); Bilirubin,Total 0.9 MG/DL (0.20-1.00); Calcium 8.2 MG/DL (8.5-10.1); Eosinophils 1 % (0-10); Lymphocytes 3 % (20-55); Osmolality,Calculated 279.7 MOS/KG (273-304); Platelet Estimate Adequate; Potassium 3.4 MMOL/L (3.5-5.1); Segmented Neutrophils 83 % (50-85); Total Cells Counted 100; Total Protein 4.6 G/DL (6.4-8.2)
[2021-05-15 04:50] LABS: Hypochromasia Slight; Microcytosis Slight
[2021-05-15] MEDS: CLINDAMYCIN INJ 300 MG/50 ML PREMIX IV SCH ×3 (05:30→18:30)
[2021-05-15] MEDS ORDERED: MAGNESIUM SULF RIDER 2 GM/50 ML PREMIX IV PRN (07:52)
[2021-05-15] MEDS ORDERED: MAGNESIUM SULF RIDER 4 GM/100 ML PREMIX IV PRN (07:52)
[2021-05-15] MEDS ORDERED: BUPIVACAINE 0.5% 50 ML VIAL ONE (11:22)
[2021-05-15] MEDS ORDERED: MIDAZOLAM 2 MG/2 ML VIAL ONE (12:06)
[2021-05-15] MEDS ORDERED: fentaNYL 100 MCG/2 ML VIAL ONE (12:06)
[2021-05-15] MEDS ORDERED: propofoL 200 MG/20 ML VIAL IV ONE (12:08)
[2021-05-15] MEDS ORDERED: LIDOCAINE 2% 5 ML VIAL ONE (12:08)
[2021-05-15] MEDS ORDERED: VANCOMYCIN INJ 1,000 MG in SODIUM CHLORIDE 0.9% 250 ML IV ONE (13:25)
[2021-05-15] MEDS ORDERED: VANCOMYCIN 1,000 MG VIAL ONE (13:26)
[2021-05-15] MEDS ORDERED: LACTATED RINGERS 1,000 ML IV SCH (14:00)
[2021-05-15] MEDS: MELOXICAM 7.5 MG TABLET PO SCH (14:46)
[2021-05-15] MEDS: METOPROLOL TARTRATE 25 MG TABLET PO SCH ×2 (14:46→22:43)
[2021-05-15] MEDS: FILGRASTIM-SNDZ 300 MCG/0.5 ML SYRINGE SUBCUT SCH (16:13)
[2021-05-15] MEDS: ZINC IV SCH (16:30)
[2021-05-15] MEDS: [UNRECOGNIZED DRUG - OTHER] IV SCH (16:30)
[2021-05-15] MEDS: MANGANESE IV SCH (16:30)
[2021-05-15] MEDS: SELENIUM IV SCH (16:30)
[2021-05-15] MEDS: COPPER IV SCH (16:30)
[2021-05-15] MEDS: MULTIVITAMIN IV SCH (16:30)
[2021-05-15] MEDS: PANTOPRAZOLE 40 MG VIAL IV SCH (18:29)
[2021-05-15 18:32] LABS: Hepatitis B Core IgM Quant 0.14 Index; Hepatitis B Surface Ag Quant < 0.10 Index; Hepatitis B Surface Ag Result Non-Reactive (NonReactive); Hepatitis C Virus Ab Quant 0.08 Index; Hepatitis C Virus Ab Result Non-Reactive (NonReactive)
[2021-05-16] MEDS: INSULIN REGULAR 100 UNIT/ML SUBCUT SCH ×5 (00:19→23:16)
[2021-05-16 04:50] LABS: Basophils % 0.2 % (0.0-0.8); Eosinophils # 0.1 10*3/uL (0.0-0.87); Eosinophils % 0.4 % (0.00-10.9); Hematocrit 34.8 VOL% (42.0-52.0); Hemoglobin 10.6 GM/DL (14.0-18.0); Immature Granulocytes % 1.7 %; Immature Granulocytes Absolute 0.24 #; Lymphocytes # 0.4 10*3/uL (1.4-4.0); Lymphocytes % 3.1 % (21.2-54.2); Mean Corpuscular HGB Conc 30.5 GM/DL (32-36); Mean Corpuscular Volume 86.6 FL (87-102); Mean Platelet Volume 10.1 FL (9.6-12.0); Monocytes % 11.8 % (1.7-12.7); Neutrophils % 82.8 % (38.7-73.9); Platelet Count 336 T/CUMM (130-400); Red Blood Count 4.02 MC/CUMM (3.8-5.5); Red Cell Distribution Width 20.4 % (9.3-17.3)
[2021-05-16 05:15] LABS: Eosinophils 1 % (0-10); Lymphocytes 6 % (20-55); Platelet Estimate Adequate; Segmented Neutrophils 79 % (50-85); Total Cells Counted 100
[2021-05-16 05:16] LABS: Hypochromasia 1+; Microcytosis 1+
[2021-05-16 05:28] LABS: Alanine Aminotransferase 129 U/L (16-61); Albumin 1.4 G/DL (3.4-5.0); Alkaline Phosphatase 207 U/L (45-117); Aspartate Amino Transferase 109 U/L (0-37); Bilirubin,Total < 0.39 MG/DL (0.20-1.00); Blood Urea Nitrogen 19 MG/DL (7-18); Calcium 8.1 MG/DL (8.5-10.1); Carbon Dioxide 40 MMOL/L (21-32); Estimated Glom Filtration Rate 149 ML/MIN; Glucose 148 MG/DL (74-106); Osmolality,Calculated 283.4 MOS/KG (273-304); Potassium 3.5 MMOL/L (3.5-5.1); Sodium 140 MMOL/L (136-145); Total Protein 5.1 G/DL (6.4-8.2)
[2021-05-16] MEDS: COPPER IV SCH (06:08)
[2021-05-16] MEDS: SELENIUM IV SCH (06:08)
[2021-05-16] MEDS: MANGANESE IV SCH (06:08)
[2021-05-16] MEDS: [UNRECOGNIZED DRUG - OTHER] IV SCH (06:08)
[2021-05-16] MEDS: ZINC IV SCH (06:08)
[2021-05-16] MEDS: MULTIVITAMIN IV SCH (06:08)
[2021-05-16] MEDS: METOPROLOL TARTRATE 25 MG TABLET PO SCH ×2 (08:13→21:34)
[2021-05-16] MEDS: MELOXICAM 7.5 MG TABLET PO SCH (08:13)
[2021-05-16 08:40] LABS: Basophils % 0.2 % (0.0-0.8); Eosinophils # 0.1 10*3/uL (0.0-0.87); Eosinophils % 0.4 % (0.00-10.9); Hematocrit 37.9 VOL% (42.0-52.0); Hemoglobin 11.5 GM/DL (14.0-18.0); Immature Granulocytes % 2.5 %; Immature Granulocytes Absolute 0.42 #; Lymphocytes # 0.4 10*3/uL (1.4-4.0); Lymphocytes % 2.3 % (21.2-54.2); Mean Corpuscular HGB Conc 30.3 GM/DL (32-36); Mean Corpuscular Volume 86.1 FL (87-102); Mean Platelet Volume 9.7 FL (9.6-12.0); Monocytes % 12.5 % (1.7-12.7); Neutrophils % 82.1 % (38.7-73.9); Platelet Count 348 T/CUMM (130-400); Red Cell Distribution Width 20.7 % (9.3-17.3); White Blood Count 17.1 T/CUMM (4-12)
[2021-05-16 08:49] LABS: Band Neutrophils 9 % (0-10); Eosinophils 1 % (0-10); Hypochromasia 1+; Lymphocytes 3 % (20-55); Nucleated Red Blood Cells 1 (0-5); Segmented Neutrophils 76 % (50-85); Total Cells Counted 100
[2021-05-16 08:50] LABS: Microcytosis 1+; Ovalocytes Slight; Platelet Estimate Normal
[2021-05-16 09:21] LABS: Albumin 1.5 G/DL (3.4-5.0); Bilirubin,Total 1.3 MG/DL (0.20-1.00); Calcium 8.6 MG/DL (8.5-10.1); Osmolality,Calculated 280.5 MOS/KG (273-304); Potassium 3.4 MMOL/L (3.5-5.1); Total Protein 5.3 G/DL (6.4-8.2)
[2021-05-16] MEDS: PANTOPRAZOLE 40 MG VIAL IV SCH (11:10)
[2021-05-16] MEDS: FILGRASTIM-SNDZ 300 MCG/0.5 ML SYRINGE SUBCUT SCH (11:13)
[2021-05-16] MEDS: ENOXAPARIN 60 MG/0.6 ML SYRINGE SUBCUT SCH (17:55)
[2021-05-16] MEDS ORDERED: ROCURONIUM 100 MG/10 ML VIAL IV ONE (19:32)
[2021-05-16] MEDS ORDERED: ETOMIDATE 20 MG/10 ML VIAL IV ONE (19:32)
[2021-05-16] MEDS ORDERED: SODIUM CHLORIDE 0.9% 1,000 ML IV ONE (19:35)
[2021-05-16] MEDS ORDERED: NOREPINEPHRINE 4 MG/4 ML VIAL IV ONE (19:37)
[2021-05-16] MEDS: NOREPINEPHRINE 8 MG in SODIUM CHLORIDE 0.9% 242 ML IV PRN (19:40)
[2021-05-16] MEDS ORDERED: MORPHINE 2 MG/1 ML SYRINGE IV PRN (19:47)
[2021-05-16] MEDS ORDERED: fentaNYL INJ 1,250 MCG in SODIUM CHLORIDE 0.9% 225 ML IV PRN (19:48)
[2021-05-16 22:32] LABS: ABG Base Excess 5.1 MMOL/L (-2.5-2.5); ABG Oxygen Saturation 98.4 % (95-100); ABG TCO2 43.9 MMOL/L (23-27)
[2021-05-16] MEDS: MIDAZOLAM 100 MG in SODIUM CHLORIDE 0.9% 80 ML IV PRN (23:17)
[2021-05-17 03:15] LABS: Basophils # 0.2 10*3/uL (0.0-0.2); Basophils % 0.5 % (0.0-0.8); Hematocrit 37.6 VOL% (42.0-52.0); Hemoglobin 11.4 GM/DL (14.0-18.0); Immature Granulocytes % 3.5 %; Lymphocytes # 0.4 10*3/uL (1.4-4.0); Lymphocytes % 1.3 % (21.2-54.2); Mean Corpuscular HGB Conc 30.3 GM/DL (32-36); Mean Corpuscular Volume 88.5 FL (87-102); Monocytes % 9.2 % (1.7-12.7); Neutrophils % 85.5 % (38.7-73.9); Platelet Count 473 T/CUMM (130-400); Red Blood Count 4.25 MC/CUMM (3.8-5.5); Red Cell Distribution Width 20.2 % (9.3-17.3); White Blood Count 28.7 T/CUMM (4-12)
[2021-05-17 03:27] LABS: ABG PH 7.343 (7.35-7.45)
[2021-05-17 03:28] LABS: ABG Base Excess 12.8 MMOL/L (-2.5-2.5); ABG HCO3 36.7 MMOL/L (20-26); ABG Oxygen Saturation 99.2 % (95-100); ABG TCO2 37.9 MMOL/L (23-27)
[2021-05-17 03:30] LABS: ABG PCO2 77.7 MM HG (35-48)
[2021-05-17 03:32] LABS: Band Neutrophils 6 % (0-10); Lymphocytes 2 % (20-55); Platelet Estimate Adequate; Segmented Neutrophils 84 % (50-85); Total Cells Counted 100
[2021-05-17 03:33] LABS: Hypochromasia Slight; Microcytosis Slight
[2021-05-17 03:41] LABS: Albumin 1.6 G/DL (3.4-5.0); Bilirubin,Total 0.7 MG/DL (0.20-1.00); Calcium 8.7 MG/DL (8.5-10.1); Total Protein 5.5 G/DL (6.4-8.2)
[2021-05-17 03:47] LABS: Osmolality,Calculated 280.5 MOS/KG (273-304)
[2021-05-17] MEDS: NOREPINEPHRINE 8 MG in SODIUM CHLORIDE 0.9% 242 ML IV PRN ×2 (04:05→13:16)
[2021-05-17] MEDS: ENOXAPARIN 60 MG/0.6 ML SYRINGE SUBCUT SCH ×2 (04:44→15:43)
[2021-05-17] MEDS: INSULIN REGULAR 100 UNIT/ML SUBCUT SCH ×3 (05:49→18:40)
[2021-05-17] MEDS: METOPROLOL TARTRATE 25 MG TABLET PO SCH ×2 (08:50→21:29)
[2021-05-17] MEDS: PANTOPRAZOLE 40 MG VIAL IV SCH (08:50)
[2021-05-17] MEDS: MELOXICAM 7.5 MG TABLET PO SCH (08:50)
[2021-05-17] MEDS: methylPREDNISolone SOD SUC 125 MG/2 ML VIAL IV SCH ×3 (11:11→21:29)
[2021-05-17] MEDS: ALBUTEROL/IPRATROPIUM 3 ML NEB RESP TX SCH ×3 (11:22→19:47)
[2021-05-17] MEDS ORDERED: MENTHOL/ZINC OXIDE OINT 71 GM JAR TOP PRN (14:38)
[2021-05-17] MEDS: ACETAMINOPHEN 325 MG TABLET PO PRN (21:30)
[2021-05-18] MEDS: ALBUTEROL/IPRATROPIUM 3 ML NEB RESP TX SCH ×4 (00:15→19:20)
[2021-05-18] MEDS ORDERED: fentaNYL INJ 2,500 MCG in SODIUM CHLORIDE 0.9% 75 ML IV PRN (01:30)
[2021-05-18] MEDS: INSULIN REGULAR 100 UNIT/ML SUBCUT SCH ×4 (01:49→18:07)
[2021-05-18] MEDS: NOREPINEPHRINE 8 MG in SODIUM CHLORIDE 0.9% 242 ML IV PRN (02:00)
[2021-05-18 04:10] LABS: Basophils # 0.1 10*3/uL (0.0-0.2); Basophils % 0.3 % (0.0-0.8); Hematocrit 31.6 VOL% (42.0-52.0); Hemoglobin 9.7 GM/DL (14.0-18.0); Immature Granulocytes % 3.2 %; Immature Granulocytes Absolute 0.72 #; Lymphocytes # 0.3 10*3/uL (1.4-4.0); Lymphocytes % 1.4 % (21.2-54.2); Mean Corpuscular HGB Conc 30.7 GM/DL (32-36); Mean Corpuscular Volume 85.6 FL (87-102); Mean Platelet Volume 9.8 FL (9.6-12.0); Monocytes % 3.5 % (1.7-12.7); Neutrophils % 91.6 % (38.7-73.9); Platelet Count 461 T/CUMM (130-400); Red Blood Count 3.69 MC/CUMM (3.8-5.5); Red Cell Distribution Width 20.9 % (9.3-17.3); White Blood Count 22.4 T/CUMM (4-12)
[2021-05-18 04:34] LABS: Calcium 8.2 MG/DL (8.5-10.1); Osmolality,Calculated 294.1 MOS/KG (273-304); Potassium 4.3 MMOL/L (3.5-5.1)
[2021-05-18 04:38] LABS: ABG Base Excess 13.8 MMOL/L (-2.5-2.5); ABG Oxygen Saturation 97.6 % (95-100); ABG PCO2 59.9 MM HG (35-48); ABG PH 7.443 (7.35-7.45); ABG PO2 103.2 MM HG (80-95); ABG TCO2 41.9 MMOL/L (23-27)
[2021-05-18 04:43] LABS: Alanine Aminotransferase 110 U/L (16-61); Albumin 1.4 G/DL (3.4-5.0); Alkaline Phosphatase 252 U/L (45-117); Aspartate Amino Transferase 72 U/L (0-37); Bilirubin,Total < 0.39 MG/DL (0.20-1.00); Blood Urea Nitrogen 31 MG/DL (7-18); Calcium 8.5 MG/DL (8.5-10.1); Carbon Dioxide 38 MMOL/L (21-32); Estimated Glom Filtration Rate 100 ML/MIN; Glucose 196 MG/DL (74-106); Osmolality,Calculated 290.4 MOS/KG (273-304); Sodium 140 MMOL/L (136-145); Total Protein 5.3 G/DL (6.4-8.2)
[2021-05-18] MEDS: methylPREDNISolone SOD SUC 125 MG/2 ML VIAL IV SCH ×4 (05:10→22:30)
[2021-05-18] MEDS: ENOXAPARIN 60 MG/0.6 ML SYRINGE SUBCUT SCH ×2 (05:11→16:09)
[2021-05-18] MEDS: MIDAZOLAM 100 MG in SODIUM CHLORIDE 0.9% 80 ML IV PRN (05:42)
[2021-05-18 06:46] LABS: Anisocytosis 2+; Band Neutrophils 22 % (0-10); Lymphocytes 3 % (20-55); Metamyelocytes 4 %; Platelet Estimate Normal; Segmented Neutrophils 69 % (50-85); Total Cells Counted 100
[2021-05-18] MEDS: MELOXICAM 7.5 MG TABLET PO SCH (08:09)
[2021-05-18] MEDS: METOPROLOL TARTRATE 25 MG TABLET PO SCH ×2 (08:09→23:16)
[2021-05-18] MEDS: PANTOPRAZOLE 40 MG VIAL IV SCH (08:10)
[2021-05-18] MEDS ORDERED: LORazepam 2 MG/1 ML VIAL IV PRN (16:59)
[2021-05-18] MEDS ORDERED: MORPHINE 2 MG/1 ML SYRINGE IV SCH (17:00)
[2021-05-19] MEDS: ALBUTEROL/IPRATROPIUM 3 ML NEB RESP TX SCH (00:22)
[2021-05-19] MEDS: methylPREDNISolone SOD SUC 125 MG/2 ML VIAL IV SCH (06:48)
[2021-05-19 07:00] VITALS: BP 79/47
== END 2021-05-19 04:26 | disposition expired | DRG 981 ==
LOC: SUATTDRO 15:43 → INTOOBSV 15:43 → N.TELES 15:43 → SUATTDRO 05-03 14:32 → N.ICU 05-07 19:25 → N.CVR 05-09 13:14 → N.TELES 05-11 11:38 → N.ICU 05-16 19:32 → N.3E 05-19 03:45
PROVIDERS: ADMIT Internal Medicine; ATTEND Internal Medicine
PROC: IRGDHTC (2021-05-03 08:50)